=== PATIENT | female | born 1960 | race Caucasian/White ===

== ENCOUNTER 2019-03-29 16:16 | Emergency (ER) | payer SELFPAY | END 2019-03-29 16:30 | disposition left against medical advice (07) | LOC: COL.ER 16:16 | DX: Z72.89 Other problems related to lifestyle (principal) ==

== ENCOUNTER 2019-03-29 17:40 | Emergency (ER) | payer BC, OTHER ==
[~2019-03-29] VITALS: Ht 165.1 cm; Wt 90.0 kg
[2019-03-29 19:30] VITALS: BP 144/81; PULSE 88; TEMP 98.1
== END 2019-03-29 19:40 | disposition home or self-care (01) ==
LOC: COL.ER 17:40
DX: S52.121A Displaced fracture of head of right radius, initial encounter for closed fracture (principal); W18.39XA Other fall on same level, initial encounter; Y92.094 Garage of other non-institutional residence as the place of occurrence of the external cause
CPT/HCPCS: J2704; Q4050